=== PATIENT | male | born 1975 | race Caucasian/White ===

== ENCOUNTER 2020-10-07 13:53 | Day surgery (SDC) | payer BC ==
[2020-10-07] MEDS ORDERED: Sodium Chloride 0.9(Preservative Free) 10 ML IJ ONE (13:54)
[2020-10-07] MEDS ORDERED: Decadron 4 MG INJ IV ONE (13:54)
[2020-10-07] MEDS ORDERED: Xylocaine 1% Vial 30 ML PF IJ ONE (13:54)
[2020-10-07] MEDS ORDERED: Lactated Ringers 1,000 ML IV ONE (15:16)
--- NOTE | 2020-10-07 17:04 | XRAY ---
Indication: Cervical JUANCARLOS. Intraoperative fluoroscopy provided for 27 seconds. 2 digital spot images submitted for interpretation demonstrates midline posterior needle with tip just posterior to the C7-T1 interspace. Small amount of contrast injected for needle tip placement. Correlate with intraoperative findings/report.
--- NOTE | 2020-10-07 17:07 | XRAY ---
27 seconds of fluoroscopy was used in surgery for a cervical JUANCARLOS.
== END 2020-10-07 16:32 | disposition home or self-care (01) ==
LOC: SDC-PAIN 13:53
PROVIDERS: ATTEND Psychiatry & Neurology Pain Medicine
DX: M54.12 Radiculopathy, cervical region (principal); Z79.899 Other long term (current) drug therapy; F41.8 Other specified anxiety disorders; K57.92 Diverticulitis of intestine, part unspecified, without perforation or abscess without bleeding; K21.9 Gastro-esophageal reflux disease without esophagitis; H93.12 Tinnitus, left ear; G47.00 Insomnia, unspecified
CPT/HCPCS: 62321; 72040; 77003; J1100; J2001; Q9966